=== PATIENT | female | born 1960 | race Caucasian/White ===

== ENCOUNTER 2023-01-09 08:43 | Day surgery (SDC) | payer OTHER ==
[2023-01-08 15:11] LABS: Absolute Lymphocytes (CBC) 2.2 K/uL (0.7-4.9); Hematocrit 42.9 % (36.0-45.0); Lymphocytes % 37.9 % (15.3-44.8); MCV 85.2 fL (80-100); MPV 6.7 fL (7.6-11.3); Platelets 325 thou/uL (152-406); RBC Red Blood Cell Count 5.04 M/uL (3.86-4.86)
[2023-01-08 15:15] LABS: Potassium 3.8 mEq/L (3.5-5.1)
--- NOTE | 2023-01-08 21:04 | RAD REPORT ---
EXAM DESCRIPTION: RAD - Chest Pa And Lat (2 Views) - 01/08/2023 3:01 pm CLINICAL HISTORY: Pre op pending mass removal. Hypertension COMPARISON: ABDOMEN ACUTE SERIES dated 01/29/2005 TECHNIQUE: PA and lateral views of the chest were obtained. FINDINGS: The lungs are clear. Heart size is normal and central vasculature is within normal limits. No pleural effusion or pneumothorax seen. No acute bony finding noted. IMPRESSION: No acute cardiopulmonary process.
[2023-01-09] MEDS ORDERED: Ringers Lactate 1,000 ML IV ONE (09:05)
[2023-01-09] MEDS ORDERED: MIDAZOLAM HCL 2 MG/2 ML INJ ONE (09:29)
[2023-01-09] MEDS ORDERED: dexAMETHasone 10 MG/ML VIAL ONE (09:29)
[2023-01-09] MEDS ORDERED: propofoL 200 MG/20 ML VIAL IV ONE (09:29)
[2023-01-09] MEDS ORDERED: ONDANSETRON 4 MG/2 ML VIAL ONE (09:29)
[2023-01-09] MEDS ORDERED: FENTANYL CITR 100 MCG/2 ML ONE (09:29)
[2023-01-09] MEDS ORDERED: KETOROLAC 30 MG/ML INJ ONE (09:30)
[2023-01-09] MEDS ORDERED: LIDOCAINE 2% MPF 5 ML VIAL ONE (09:30)
[2023-01-09] MEDS ORDERED: CEFAZOLIN SODIUM 1 GM/VIAL ONE (09:47)
[2023-01-09] MEDS ORDERED: NS 0.9% VIAL 10 ML ONE ×2 (10:29)
[2023-01-09] MEDS ORDERED: Phenylephrine HCl 10 MG/ML 1 ML VIAL ONE (10:30)
--- NOTE | 2023-01-09 11:14 | P.BOP ---
Preoperative diagnosis: tender abdominal wall intramuscular mass, tender post neck subQ mass Postoperative diagnosis: same Primary procedure: 1. Excisional biopsy abdominal wall intramuscular mass 6x6cm Secondary procedure: 2. Excisional biopsy post neck subQ mass [id number] Tension Worker: ANGELO AYALA ([employer]) Estimated blood loss: <30cc Specimen: mass x 2 Findings: post neck solid mass, abd wall intramusc cystic mass with large hematoma in Anesthesia: General Complications: None Drain(s): WILLIAM drain (x2) Transferred to: Recovery Room Condition: Good
[2023-01-09 12:00] VITALS: O2SAT 99
[2023-01-09 12:23] VITALS: BP 147/79; TEMP 97.6
[2023-01-09] MEDS ORDERED: HYDROCODONE/APAP 7.5/325 MG TAB ONE (12:45)
--- NOTE | 2023-01-09 14:56 | EKG ---
Test Date: 2023-01-08 Test Time: 14:44:05 Signal Maintenance Technician: MENDOZA MEASUREMENT RESULTS: Intervals: Rate: 78 IL: 136 QRSD: 74 QT: 370 QTc: 421 [place]: P: 22 IL: 136 QRS: 23 T: 46 INTERPRETIVE STATEMENTS: Normal sinus rhythm Low voltage QRS Cannot rule out Anterior infarct, age undetermined Abnormal ECG Compared to ECG 07/09/2013 16:04:23 Myocardial infarct finding now present Electronically Signed On 01-09-23 14:54:12 CDT by Roni Montalvo
--- NOTE | 2023-01-19 16:36 | OP ---
Date of Procedure: 01/09/2023 Surgeon: Taurus Mendieta MD Salmon Gillnet Vessel Operator: Luz Maria Brannon. Preoperative Diagnoses: Tender abdominal wall intramuscular mass and also tender posterior neck subc utaneous mass. Postoperative Diagnoses: Tender abdominal wall intramuscular mass and also tender posterior neck sub cutaneous mass. Procedures: 1.Excisional biopsy of abdominal wall intramuscular mass, 6 x 6 cm. 2.Excisional biopsy of posterior neck subcutaneous mass, 10 x 10 cm. Estimated Blood Loss: Less than 30 cc. Specimens: Neck and abdominal wall mass. Findings: In the posterior neck area shows a solid mass. The abdominal wall shows a hemorrhagic cys tic mass. Anesthesia: General plus local. Drains: WILLIAM drain on the neck and on the abdominal wall. Each case was done individually. Indication: This is a case of a female, who comes to us with 2 problems, 2 masses, etiology of that is unknown. The one in the posterior neck is large, tender, but she also have one that shows also on imaging on the intramuscular on the abdominal wall and she does not recall having any trauma before or any infection, so that was a mystery and she wants those to remove for biopsy. The benefits, alte rnatives, and risks of excisional biopsy of each one individually were fully explained, which include , but not limited to, infection, bleeding, damage to adjacent structures, anesthesia complication, re currence, [place], and even . They also understood this may not relieve any symptoms. She might nee d more than one surgical intervention. She understood and signed a consent. Procedure In Detail: Both areas were marked previously in the holding room. Patient was brought to the operating room, placed in supine position. Anesthesia was done without complication. The patien t was placed in lateral decubitus position with proper protection. The posterior neck and abdomen we re prepped and draped in the usual sterile fashion. We did the posterior neck first. We made an inc ision in that area. This mass was large. It was about 10 x [address] down to fascia of the muscle. Some of the fascia of the muscle have to come with the specimen. This does not seem to be p enetrating the muscle. Once the mass was completely excised with the help of blunt dissection and Gopal vie, we proceeded then to send the mass to pathologist, but this cavity was so large and I believe it was going to be a large seroma, so I proceeded to leave a WILLIAM drain exiting nearby, secured in place with 3-0 nylon and the skin was approximated with the help of 3-0 chromic and 4-0 PDS. Sponge counts and instrument counts were correct. Hemostasis was obtained before closure. Also local anesthetic was applied before closure. At that moment, we have instrument count and sponge count correct, and w e proceeded to go to the abdomen. Now this was deeper. It was going inside the abdomen. So we made an incision on the palpated area. Incision was carried down to the fat, then muscle was encountered , then we split the muscle fiber in the direction of the fiber and then we noticed this cystic mass p resent intramuscular in the oblique muscles. There was a large clot, that looked like an old clot in that area with the cystic capsule. The mass was excised. The blood was irrigated and once again du e to the large cavity, a WILLIAM drain was left in that area and secured in place with 3-0 nylon and the s kin was approximated with a combination of absorbable sutures. Sponge counts and instrument counts c orrect, and local anesthetic was applied before closure. Patient was sent to Recovery in stable cond ition. OLIVIER/JACQUELIN Voice ID: [id number] Report ID: [id number]
--- NOTE | 2023-01-19 16:42 | DS ---
Date of Discharge: 01/09/2023 Diagnosis: Tender abdominal wall intramuscular mass and tender posterior neck subcutaneous mass. Procedure: Excisional biopsy of abdominal wall and posterior neck subcutaneous mass. Disposition: Home. Activity: As tolerated. No heavy lifting. Plan: Follow up in my office in 1 week. Call for appointment at [phone]. Keep area dry until next doctor visit. Record WILLIAM output q.24 hours. OLIVIER/JACQUELIN Voice ID: [id number] Report ID: [id number]
== END 2023-01-09 13:10 | disposition home or self-care (01) ==
LOC: OR 08:43
PROVIDERS: ATTEND Surgery
PROC: 0JB70ZZ Excision of Back Subcutaneous Tissue and Fascia, Open Approach (ICD-10-PCS; principal; 2023-01-09 12:15)
PROC: 0JB50ZZ Excision of Left Neck Subcutaneous Tissue and Fascia, Open Approach (ICD-10-PCS; 2023-01-09 12:15)
DX: D23.5 Other benign neoplasm of skin of trunk (principal); D17.0 Benign lipomatous neoplasm of skin and subcutaneous tissue of head, face and neck; I10 Essential (primary) hypertension
CPT/HCPCS: 22903; 11426; 93005; 85025; 80048; 36415; 88304; 71046; A4216 ×2; J2704; J2371; J2001; J2250; J3010; J1100; J2405; J7120; J0690; 88305